=== PATIENT | female | born 1980 | race Hispanic/Latino ===

== ENCOUNTER 2024-01-15 14:00 | Emergency (ER) | payer SELFPAY ==
[~2024-01-15] VITALS: Ht 154.9 cm; Wt 72.6 kg
[2024-01-15] MEDS: ONDANSETRON HCL INJ 2MG/ML 2ML 2 MG/ML VIAL IV ONE (15:11)
[2024-01-15] MEDS: KETOROLAC TROMETHAMINE 30 MG/ML VIAL IV STA (15:11)
[2024-01-15] MEDS: FAMOTIDINE 20 MG/2 ML VIAL IV ONE (15:11)
[2024-01-15] MEDS: SODIUM CHLORIDE 0.9% 1000ML 1,000 ML IV STA (15:12)
[2024-01-15 16:05] VITALS: PULSE 69; RESP 18; TEMP 98.1
[2024-01-15] MEDS ORDERED: PYRIDIUM100 MG PO (16:25)
[2024-01-15] MEDS ORDERED: KETOROLAC TROME10 MG PO (16:25)
[2024-01-15] MEDS ORDERED: ONDANSETRON ODT4 MG PO (16:25)
[2024-01-15 19:55] VITALS: BP 129/84; PULSE 74; RESP 18; TEMP 98.2; O2SAT 98
== END 2024-01-15 16:30 | disposition home or self-care (01) ==
LOC: FSED 14:20
DX: R11.2 Nausea with vomiting, unspecified (principal); N13.2 Hydronephrosis with renal and ureteral calculous obstruction; F41.9 Anxiety disorder, unspecified; F32.A Depression, unspecified; F17.210 Nicotine dependence, cigarettes, uncomplicated
CPT/HCPCS: 74176; 80053; 81003; 81025; 85025; 99284; J1885; J2405; J7030